=== PATIENT | female | born 1980 | race Caucasian/White ===

== ENCOUNTER → 2017-04-22 | Outpatient (CLI) | payer OTHER ==
[~2017-04-22] MED LIST: DICY10CA12 PO; LEVOIUD; VALA500T60 PO
[2017-04-25 00:33] LABS: CHLAMYDIA TRACH RNA*** NOT DETECTED (NOT DETECTED); GC (NEIS GONORRHOEAE)RNA** NOT DETECTED (NOT DETECTED)
== END | disposition home or self-care (01) ==
LOC: C.LABSPEC 11:23
PROVIDERS: ATTEND Nurse Practitioner Adult Health
DX: N89.8 Other specified noninflammatory disorders of vagina (principal)

== ENCOUNTER → 2017-04-22 | Outpatient (CLI) | payer OTHER | END | disposition home or self-care (01) | LOC: C.PAPS 09:38 | PROVIDERS: ATTEND Nurse Practitioner Adult Health | DX: Z87.410 Personal history of cervical dysplasia (principal); R87.610 Atypical squamous cells of undetermined significance on cytologic smear of cervix (ASC-US) ==

== ENCOUNTER → 2017-04-23 | Outpatient (CLI) | payer OTHER | END | disposition home or self-care (01) | LOC: C.LABBC 08:51 | PROVIDERS: ATTEND Nurse Practitioner Family | DX: Z20.2 Contact with and (suspected) exposure to infections with a predominantly sexual mode of transmission (principal) ==

== ENCOUNTER → 2017-05-18 | Outpatient (CLI) | payer OTHER | END | disposition home or self-care (01) | LOC: C.PATHSPEC 08:08 | PROVIDERS: ATTEND Obstetrics & Gynecology | DX: R87.610 Atypical squamous cells of undetermined significance on cytologic smear of cervix (ASC-US) (principal); R87.810 Cervical high risk human papillomavirus (HPV) DNA test positive; D26.0 Other benign neoplasm of cervix uteri ==

== ENCOUNTER → 2017-05-25 | Outpatient (CLI) | payer OTHER ==
--- NOTE | 2017-05-25 13:39 | DIAGNOSTIC IMAGING REPORT ---
ABDOMEN 2VIEW W/PA CHEST RTN CLINICAL HISTORY: Generalized abdominal pain COMPARISON STUDY: Supine abdomen dated 06/25/2016 FINDINGS: The erect chest reveals no evidence of free air. There is no evidence of focal pulmonary consolidation.] Erect and supine views of the abdomen reveal no abnormally dilated loops of large or small bowel. There are no transition zone to indicate bowel obstruction. There is an indwelling IUD. IMPRESSION: No evidence of bowel obstruction. No evidence of free air. Electronically signed by: Edi Hamilton M.D. 05/25/2017 1:37 PM Dictated Date/Time: 05/25/2017 1:37 PM
== END | disposition home or self-care (01) ==
LOC: C.RADBC 12:33
PROVIDERS: ATTEND Physician Assistant
DX: R10.9 Unspecified abdominal pain (principal)

== ENCOUNTER → 2017-05-26 | Outpatient (CLI) | payer OTHER | END | disposition home or self-care (01) | LOC: C.LABBC 08:51 | PROVIDERS: ATTEND Physician Assistant | DX: R10.9 Unspecified abdominal pain (principal); R19.7 Diarrhea, unspecified ==

== ENCOUNTER → 2017-11-17 | Outpatient (CLI) | payer OTHER ==
[~2017-11-17] MED LIST changes: +LEVO1IUD2; -LEVOIUD
== END | disposition home or self-care (01) ==
LOC: C.PAPS 18:23
PROVIDERS: ATTEND Obstetrics & Gynecology
DX: R87.610 Atypical squamous cells of undetermined significance on cytologic smear of cervix (ASC-US) (principal); R87.612 Low grade squamous intraepithelial lesion on cytologic smear of cervix (LGSIL)

== ENCOUNTER 2017-12-08 08:42 | Emergency (ER) | payer OTHER ==
[~2017-12-08] VITALS: Ht 154.9 cm; Wt 57.8 kg
[2017-12-08 08:45] VITALS: TEMP 36.7; Ht 154.9 cm; Wt 57.8 kg
[2017-12-08] MEDS ORDERED: SODIUM CHLORIDE 0.9% 1000ML 1,000 ML IV STA (09:17)
[2017-12-08] MEDS ORDERED: MoRPHine SULFATE 4 MG/ML 1 ML CARP\\VIAL IV STA (09:17)
[2017-12-08] MEDS ORDERED: ONDANSETRON INJ 2 MG/ML 2 ML VIAL IV STA (09:17)
[2017-12-08] MEDS ORDERED: SODIUM CHLORIDE 0.9% 500ML 500 ML IV STA (09:17)
--- NOTE | 2017-12-08 09:21 | EMERGENCY ROOM VISIT NOTE ---
History Report prepared by Saúl: Osmany Francisco Under the Supervision of: Dr. Sabine Armstrong M.D. First contact with patient: 08:57 Chief Complaint: ABDOMINAL PAIN Stated Complaint: LEFT BELLY PAIN Nursing Triage Summary: pt has hx IBS, started having left lower abd pain yesterday afternoon. states it doesn't feel like a flair. History of Present Illness The patient is a 37 year old female who presents to the Emergency Room with complaints of worsening pain in the left lower quadrant of her abdomen that began yesterday. The patient states that she had some "discomfort" in her abdomen yesterday, which was significantly worsened with a bowel movement. Following her bowel movement yesterday she became diaphoretic and dizzy. The patient does have a history of irritable bowel syndrome, but notes that this pain is different from her common pain. Source of History: patient Onset: yesterday Position: abdomen (LLQ) Timing: worsening Modifying Factors (Worsening): other (bowel movement yesterday) Associated Symptoms: + diaphoresis Note: became dizzy Review of Systems See HPI for pertinent positives & negatives. A total of 10 systems reviewed and were otherwise negative. Past Medical & Surgical Medical Problems: (1) Asthma (2) Calculus Of Ureter (3) Depressive Disorder Nec (4) Tobacco Use Disorder Surgical Problems: (1) History of delivery (2) History of tonsillectomy (3) Status post myringotomy with insertion of tube Family History FH: cancer FH: diabetes mellitus FH: hypertension FH: kidney disease Social History Smoking Status: Current Every Day Smoker Alcohol Use: none Marital Status: single Housing Status: lives with family Occupation Status: employed Current/Historical Medications Scheduled Ciprofloxacin Hcl (Cipro), 500 MG PO BID Scheduled PRN Dicyclomine Hcl (Dicyclomine Hcl), 1 CAP PO TID PRN for Pain Dicyclomine Hcl (Bentyl), 10 MG PO Q6 PRN for spasm Valacyclovir (Valtrex), 500 MG PO DIRECTED PRN for HERPES ON LIPS Miscellaneous Medications Levonorgestrel (Iud) (Mirena) Allergies Coded Allergies: No Known Allergies (Verified , 06/01/17) Physical Exam Vital Signs Date Time Temp Pulse Resp B/P (MAP) Pulse Ox O2 Delivery O2 Flow Rate FiO2 12/08/17 12:05 66 18 106/57 98 12/08/17 10:23 73 12/08/17 10:20 99 18 103/60 99 Room Air 12/08/17 08:45 36.7 85 17 103/57 98 Room Air Physical Exam Vital signs reviewed. General: Well-appearing middle age female, in no significant distress. HEENT: No scleral icterus, PERRLA, neck supple. Atraumatic. Cardiovascular: Regular rate and rhythm, no extra sounds. Pulmonary: Clear to auscultation bilaterally, normal work of breathing. Abdomen: Soft, tender to the left lower quadrant, nondistended, positive bowel sounds. Musculoskeletal: Atraumatic, no peripheral edema. Neurologic: Patient awake alert and oriented x 3 Skin: Warm, dry, no rash Medical Decision & Procedures ER Provider Diagnostic Interpretation: Radiology results as stated below per my review and radiologist interpretation: CT OF THE ABDOMEN AND PELVIS WITH CONTRAST CLINICAL HISTORY: Left lower quadrant abdominal pain. COMPARISON STUDY: CT of the abdomen and pelvis December 24, 2011 and abdominal series May 25, 2017. TECHNIQUE: Following IV administration of 94 mL of Optiray-320, axial images of the abdomen and pelvis were obtained from the lung bases to the proximal femurs. Images were reviewed in the axial, sagittal, and coronal planes. IV contrast was administered without complication. A dose lowering technique was utilized adhering to the principles of ALARA. Oral contrast was administered. CT DOSE: 263.54 mGy.cm FINDINGS: A 4 mm left lower lobe nodule is unchanged and CT of December 24, 2011. This is benign. The liver, spleen, adrenal glands, kidneys and pancreas are normal. There is no hydronephrosis. No biliary or pancreatic ductal dilatation is noted. There is no peripancreatic or pericholecystic infiltration. Appendix is normal. Caliber and wall thickness of small and large bowel are normal. Intrauterine device is appropriately positioned. The ovaries are not enlarged. A small amount of fluid within the pelvis is noted. This is low attenuation. No significant abnormality of the visualized skeletal structures are noted. IMPRESSION: 1. No acute process within the abdomen or pelvis. Normal appendix. No bowel obstruction. 2. Small amount of fluid within the pelvis which is likely physiologic. Electronically signed by: Parth Carpenter M.D. 12/08/2017 11:59 AM Dictated Date/Time: 12/08/2017 11:47 AM Laboratory Results 12/08/17 08:55 Red Blood Count 4.68, Mean Corpuscular Volume 99.1, Mean Corpuscular Hemoglobin 33.5, Mean Corpuscular Hemoglobin Concent 33.8, Mean Platelet Volume 11.5, Neutrophils (%) (Auto) 84.2, Lymphocytes (%) (Auto) 6.9, Monocytes (%) (Auto) 7.9, Eosinophils (%) (Auto) 0.4, Basophils (%) (Auto) 0.3, Neutrophils # (Auto) 6.43, Lymphocytes # (Auto) 0.53, Monocytes # (Auto) 0.60, Eosinophils # (Auto) 0.03, Basophils # (Auto) 0.02 12/08/17 08:55 Test 12/08/17 08:15 12/08/17 08:55 Urine Color ORANGE Urine Appearance TURBID (CLEAR) Urine pH 5.5 (4.5-7.5) Urine Specific [place] 1.034 (1.000-1.030) Urine Protein TRACE (NEG) Urine Glucose (UA) NEG (NEG) Urine Ketones NEG (NEG) Urine Occult Blood NEG (NEG) Urine Nitrite POS (NEG) Urine Bilirubin NEG (NEG) Urine Urobilinogen NEG (NEG) Urine Leukocyte Esterase TRACE (NEG) Urine WBC (Auto) 1-5 /hpf (0-5) Urine RBC (Auto) 0-4 /hpf (0-4) Urine Hyaline Casts (Auto) 5-10 /lpf (0-5) Urine Epithelial Cells (Auto) >30 /lpf (0-5) Urine Bacteria (Auto) NEG (NEG) Urine Renal Epithelial Cells 0-5 /lpf (0-5) Urine Test NEG (NEG) White Blood Count 7.63 K/uL (4.8-10.8) Red Blood Count 4.68 M/uL (4.2-5.4) Hemoglobin 15.7 g/dL (12.0-16.0) Hematocrit 46.4 % (37-47) Mean Corpuscular Volume 99.1 fL (80-100) Mean Corpuscular Hemoglobin 33.5 pg (25-34) Mean Corpuscular Hemoglobin Concent 33.8 g/dl (32-36) Platelet Count 187 K/uL (130-400) Mean Platelet Volume 11.5 fL (7.4-10.4) Neutrophils (%) (Auto) 84.2 % Lymphocytes (%) (Auto) 6.9 % Monocytes (%) (Auto) 7.9 % Eosinophils (%) (Auto) 0.4 % Basophils (%) (Auto) 0.3 % Neutrophils # (Auto) 6.43 K/uL (1.4-6.5) Lymphocytes # (Auto) 0.53 K/uL (1.2-3.4) Monocytes # (Auto) 0.60 K/uL (0.11-0.59) Eosinophils # (Auto) 0.03 K/uL (0-0.5) Basophils # (Auto) 0.02 K/uL (0-0.2) RDW Standard Deviation 48.0 fL (36.4-46.3) RDW Coefficient of Variation 13.4 % (11.5-14.5) Immature Granulocyte % (Auto) 0.3 % Immature Granulocyte # (Auto) 0.02 K/uL (0.00-0.02) Anion Gap 4.0 mmol/L (3-11) Est Creatinine Clear Calc Drug Dose 78.9 ml/min Estimated GFR () 110.1 Estimated GFR (Non- 95.0 BUN/Creatinine Ratio 12.2 (10-20) Calcium Level 8.3 mg/dl (8.5-10.1) Total Bilirubin 1.2 mg/dl (0.2-1) Direct Bilirubin 0.2 mg/dl (0-0.2) Aspartate Amino Transf (AST/SGOT) 13 U/L (15-37) Alanine Aminotransferase (ALT/SGPT) 19 U/L (12-78) Alkaline Phosphatase 58 U/L (45-117) Total Protein 7.0 gm/dl (6.4-8.2) Albumin 3.9 gm/dl (3.4-5.0) Laboratory results per my review. Medications Administered Medications (Trade) Dose Ordered Sig/Jose Route Start Time Stop Time Status Last Admin Dose Admin Sodium Chloride 500 ml @ 999 mls/hr Q31M STAT IV 12/08/17 09:17 12/08/17 09:47 DC 12/08/17 09:37 999 MLS/HR Sodium Chloride 1,000 ml @ 150 mls/hr Q6H40M STAT IV 12/08/17 09:17 12/08/17 12:45 DC 12/08/17 09:37 150 MLS/HR Ondansetron HCl (Zofran Inj) 4 mg NOW STAT IV 12/08/17 09:17 12/08/17 09:23 DC 12/08/17 09:38 4 MG Morphine Sulfate (MoRPHine SULFATE INJ) 4 mg NOW STAT IV 12/08/17 09:17 12/08/17 09:23 DC 12/08/17 09:38 4 MG Ciprofloxacin (Cipro Tab) 500 mg NOW STAT PO 12/08/17 12:03 12/08/17 12:05 DC 12/08/17 12:15 500 MG ED Course 09: Past medical records reviewed. The patient was evaluated in room A11B. A complete history and physical examination was performed. 0917: Ordered Morphine Sulfate 4 mg IV, Zofran 4 mg IV, Sodium Chloride 1000 mL @ 150 mL/hr IV, Sodium Chloride 500 mL @ 999 mL/h Radha. 1203: Ordered Ciprofloxacin 500 mg PO. 1206: Upon reevaluation, the patient appeared to have improvement of her symptoms. I discussed findings with her. She verbalized agreement of the treatment plan. The patient was discharged home. Medical Decision Differential diagnosis: Etiologies such as appendicitis, diverticulitis, PUD, biliary pathology, UTI, pancreatitis, obstruction, mesenteric ischemia, aortic pathology, infections, inflammatory bowel disease, renal colic, as well as others were entertained. This pt was evaluated and appeared to be in no distress. IV access was obtained and lab work was drawn. Pt was given IV morphine and IV zofran. Lab work was fairly unrevealing. CT scan of abd and pelvis was performed and was fairly unrevealing. UA is concerning for infection. A 3 day Rx for cipro 500 mg BID and bentyl 10 mg q6 prn Rx were provided. 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 Medication Reconcilliation Current Medication List: was personally reviewed by me Blood Pressure Screening Patient's blood pressure: Low blood pressure Impression Primary Impression: LLQ abdominal pain Additional Impression: UTI (urinary tract infection) Scribe Attestation The scribe's documentation has been prepared under my direction and personally reviewed by me in its entirety. I confirm that the note above accurately reflects all work, treatment, procedures, and medical decision making performed by me. Departure Information Dispostion Home / Self-Care Prescriptions Ciprofloxacin Hcl (CIPRO) 500 Mg Tab 500 MG PO BID, #6 TAB Prov: Sabine Armstrong M.D. 12/08/17 Dicyclomine Hcl (BENTYL) 10 Mg Cap 10 MG PO Q6 Y for spasm, #20 CAP Prov: Sabine Armstrong M.D. 12/08/17 Referrals Florentin Bettencourt III, CRNP (PCP) Forms Call Back Authorization, HOME CARE DOCUMENTATION FORM, IMPORTANT VISIT INFORMATION Patient Instructions My [facility] Additional Instructions Diagnosis: Left lower quadrant abdominal pain, possible UTI Cipro 500 mg twice daily for 3 days. Please drink plenty of clear fluids. Bentyl 10 mg every 6 hours as needed for spasm. Follow-up with your pai g[employer] dealer for reevaluation this week. Return to the ER for increasing pain, vomiting, high fevers or any medical concerns. Problem Qualifiers
[2017-12-08 09:30] LABS: BASO % 0.3 %; BASO ABS # 0.02 K/uL (0-0.2); EOS % 0.4 %; EOS ABS # 0.03 K/uL (0-0.5); HEMATOCRIT 46.4 % (37-47); HEMOGLOBIN 15.7 g/dL (12.0-16.0); IG# 0.02 K/uL (0.00-0.02); LYMPH % 6.9 %; LYMPH ABS # 0.53 K/uL (1.2-3.4); MEAN CELL VOLUME 99.1 fL (80-100); MEAN CORPUSCULAR HEMOGLOBIN 33.5 pg (25-34); MEAN CORPUSCULAR HGB CONC 33.8 g/dl (32-36); MEAN PLATELET VOLUME 11.5 fL (7.4-10.4); MONO % 7.9 %; NEUT % 84.2 %; NEUT ABS # 6.43 K/uL (1.4-6.5); PLATELET COUNT 187 K/uL (130-400); RED CELL DISTRIBUTION WIDTH CV 13.4 % (11.5-14.5); WHITE BLOOD COUNT 7.63 K/uL (4.8-10.8)
[2017-12-08] MEDS ORDERED: OPTIRAY 320 IV PRN (09:30)
[2017-12-08 09:39] LABS: ALBUMIN 3.9 gm/dl (3.4-5.0); CALCIUM 8.3 mg/dl (8.5-10.1); CREATININE 0.79 mg/dl (0.60-1.20); POTASSIUM 3.5 mmol/L (3.5-5.1)
--- NOTE | 2017-12-08 12:00 | DIAGNOSTIC IMAGING REPORT ---
CT OF THE ABDOMEN AND PELVIS WITH CONTRAST CLINICAL HISTORY: Left lower quadrant abdominal pain. COMPARISON STUDY: CT of the abdomen and pelvis December 24, 2011 and abdominal series May 25, 2017. TECHNIQUE: Following IV administration of 94 mL of Optiray-320, axial images of the abdomen and pelvis were obtained from the lung bases to the proximal femurs. Images were reviewed in the axial, sagittal, and coronal planes. IV contrast was administered without complication. A dose lowering technique was utilized adhering to the principles of ALARA. Oral contrast was administered. CT DOSE: 263.54 mGy.cm FINDINGS: A 4 mm left lower lobe nodule is unchanged and CT of December 24, 2011. This is benign. The liver, spleen, adrenal glands, kidneys and pancreas are normal. There is no hydronephrosis. No biliary or pancreatic ductal dilatation is noted. There is no peripancreatic or pericholecystic infiltration. Appendix is normal. Caliber and wall thickness of small and large bowel are normal. Intrauterine device is appropriately positioned. The ovaries are not enlarged. A small amount of fluid within the pelvis is noted. This is low attenuation. No significant abnormality of the visualized skeletal structures are noted. IMPRESSION: 1. No acute process within the abdomen or pelvis. Normal appendix. No bowel obstruction. 2. Small amount of fluid within the pelvis which is likely physiologic. Electronically signed by: Parth Carpenter M.D. 12/08/2017 11:59 AM Dictated Date/Time: 12/08/2017 11:47 AM
[2017-12-08] MEDS ORDERED: CIPROFLOXACIN 500 MG TAB PO STA (12:03)
[2017-12-08 12:05] VITALS: BP 106/57; PULSE 66; O2SAT 98
[2017-12-08] MEDS ORDERED: DICY10CA55 PO (12:13)
[2017-12-08] MEDS ORDERED: CIPR-255 PO (12:14)
== END 2017-12-08 12:38 | disposition home or self-care (01) ==
LOC: C.EDB 08:44 → C.EDA 12:38
DX: R10.32 Left lower quadrant pain (principal); N39.0 Urinary tract infection, site not specified; K58.9 Irritable bowel syndrome, unspecified; J45.909 Unspecified asthma, uncomplicated; F17.200 Nicotine dependence, unspecified, uncomplicated; Z84.1 Family history of disorders of kidney and ureter

== ENCOUNTER 2019-10-31 01:32 | Inpatient (IN) ==
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
[2019-10-31] MEDS ORDERED: OXYTOCIN 30 UNITS/500 ML BAG IV PRN ×2 (03:39→09:29)
[2019-10-31] MEDS ORDERED: LACTATED RINGER'S 1,000 ML IV PRN (03:39)
[2019-10-31 04:21] LABS: Hematocrit (blood only) 41.3 % (37-47); Hemoglobin 14.3 g/dL (12.0-16.0); Mean Corpuscular Hemoglobin 34.3 pg (25-34); Mean Corpuscular Hgb Conc 34.6 g/dL (32-36); Platelet Count 109 K/uL (130-400); RDW Coefficient of Variation 13.2 % (11.5-14.5); RDW Standard Deviation 47.4 fL (36.4-46.3); Red Blood Count 4.17 M/uL (4.2-5.4); White Blood Count 10.46 K/uL (4.8-10.8)
[2019-10-31 04:22] LABS: Platelet Estimate Decreased (Normal)
[2019-10-31] MEDS ORDERED: CEFAZOLIN 2000MG 2,000 MG/15 ML SYR IV ONE (06:13)
[2019-10-31] MEDS ORDERED: fentaNYL citrate 100 MCG/2 ML VIAL ONE ×2 (06:23→06:42)
[2019-10-31] MEDS ORDERED: SUCCINYLCHOLINE 100MG/5ML SYR ONE (06:27)
[2019-10-31] MEDS ORDERED: PROPOFOL IV EMULSION 10 MG/ML 20 ML VIAL IV ONE (06:27)
[2019-10-31] MEDS ORDERED: DEXAMETHASONE SOD INJ 4 MG/ML VIAL ONE (06:27)
[2019-10-31] MEDS ORDERED: CEFAZOLIN 250 MG/ML 1 GM VIAL ONE (06:28)
[2019-10-31] MEDS ORDERED: ONDANSETRON INJ 2 MG/ML 2 ML VIAL ONE (06:28)
[2019-10-31] MEDS ORDERED: PHENYLEPHRINE 100MCG/ML 5ML SYR ONE (06:34)
[2019-10-31] MEDS ORDERED: KETOROLAC 30 MG/ML VIAL IV PRN (06:45)
[2019-10-31] MEDS ORDERED: PHENYLEPHRINE 100MCG/ML 5ML SYR IV PRN (06:45)
[2019-10-31] MEDS ORDERED: HYDROmorphone INJ 1 MG/ML SYRINGE IV PRN (06:45)
[2019-10-31] MEDS ORDERED: ATROPINE SULFATE 0.1 MG/ML 10ML SYR IV PRN (06:45)
[2019-10-31] MEDS ORDERED: ONDANSETRON INJ 2 MG/ML 2 ML VIAL IV PRN ×2 (06:45→07:52)
[2019-10-31] MEDS ORDERED: fentaNYL citrate 100 MCG/2 ML VIAL IV PRN (06:45)
[2019-10-31] MEDS ORDERED: ePHEDrine sulfate 50 MG/ML AMP IV PRN (06:45)
[2019-10-31] MEDS ORDERED: LABETALOL HCL IV 5 MG/ML 20ML IV PRN (06:45)
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
[2019-10-31 06:50] LABS: Base Excess Cord Arterial Bld -9.7 mEq/L (-9-1.8); CO2 Cord Arterial Blood 109 mmHg (39.1-73.5); HCO3 Cord Arterial Blood 25 mmol/L (19.7-28.5); PO2 Cord Arterial Blood 10 mmHg (4.1-31.7); pH Cord Arterial Blood 6.98 (7.1-7.38)
[2019-10-31 06:56] LABS: Oxygen Sat Cord Arterial Blood < 60.0 % (<60)
--- NOTE | 2019-10-31 07:28 | XRay Report ---
XR KUB/Abdomen 1 view CLINICAL HISTORY: stat c/section under general. no instrument or COMPARISON STUDY: 05/25/2017 FINDINGS: Prominent soft tissue density over the right central abdomen. This potentially relates to t he enlarged postgravid uterus. Bowel pattern is considered nonobstructive. No evidence for radiopaque foreign body IMPRESSION: 1. No evidence for radiopaque foreign body. 2. Soft tissue prominence within the superior soft tissue pelvic and lower abdominal region which pot entially indicates an enlarged postgravid uterus. ACT 112: Negative or not required by law. The above report was generated using voice recognition software. It may contain grammatical, syntax or spelling errors. Electronically signed by: Hugo Campo M.D. 10/31/2019 7:27 AM
[2019-10-31] MEDS ORDERED: SENNA 8.6 MG TAB PO PRN (07:52)
[2019-10-31] MEDS ORDERED: DiphenhydrAMINE HCL 50 MG/ML VIAL IV PRN (07:52)
[2019-10-31] MEDS ORDERED: HYDROCORTISONE ACETATE 25 MG SUPP PR PRN (07:52)
[2019-10-31] MEDS ORDERED: SUPERCREAM 0.870% 15 GM JAR EXT PRN (07:52)
[2019-10-31] MEDS ORDERED: LACTATED RINGER'S 1,000 ML IV SCH (07:52)
[2019-10-31] MEDS ORDERED: PROMETHAZINE HCL 25 MG in SODIUM CHLORIDE 0.9% 50 ML IV PRN (07:52)
[2019-10-31] MEDS ORDERED: DIPHTHERIA/TETANUS/PERTUSSIS 0.5 ML SYR/VIAL IM ONE (07:52)
[2019-10-31] MEDS ORDERED: MAGNESIUM HYDROXIDE SUSP 30 ML UDC PO PRN (07:52)
[2019-10-31] MEDS ORDERED: BENZOCAINE 20% AER SPR 82.5 GM CAN EXT PRN (07:52)
--- NOTE | 2019-10-31 07:58 | Anesthesiology Progress Note ---
Date of Service October 31, 2019 Anesthesia Post Procedure Vital Signs Vital Signs: Temp Pulse Resp BP Pulse Ox 10/31/19 07:52 62 100 10/31/19 07:49 74 140/79 10/31/19 07:48 69 93 10/31/19 07:47 73 100 10/31/19 07:42 79 99 10/31/19 07:38 81 165/73 H 10/31/19 07:37 76 99 10/31/19 07:34 81 150/67 H 10/31/19 07:33 91 H 90 10/31/19 07:32 82 99 10/31/19 07:27 79 92 10/31/19 05:56 58 L 100 10/31/19 05:52 62 134/73 10/31/19 05:51 61 100 10/31/19 03:31 67 119/76 10/31/19 01:56 36.5 C 18 10/31/19 01:47 36.5 C 68 18 132/75 Transfer of Care Handoff Completed per policy Notes Mental Status: alert / awake / arousable and participated in evaluation Patient Amnestic to Procedure: Yes Nausea / Vomiting: adequately controlled Pain: adequately controlled Airway Patency, RR, SpO2: stable & adequate BP & HR: stable & adequate Hydration State: stable & adequate Anesthetic Complications: no major complications apparent and Pt Satisfied with anesthetic care
[2019-10-31] MEDS: MEPERIDINE HCL 25 MG/ML CARP/VIAL IV PRN ×4 (08:02→08:41)
[2019-10-31] MEDS ORDERED: MoRPHine Bolus from PCA IV STA (08:06)
[2019-10-31] MEDS ORDERED: MORPHINE SULFATE PCA 30 MG/30 ML IV PRN (08:06)
[2019-10-31] MEDS ORDERED: NALOXONE HCL 0.4 MG/1 ML VIAL/CARP IV PRN (08:06)
[2019-10-31] MEDS ORDERED: SODIUM CHLORIDE 0.9% 1000ML 1,000 ML IV SCH (08:15)
--- NOTE | 2019-10-31 08:19 | Operative Report ---
PG Post Operative Report Pre & Post Diagnosis Operation Date: 10/31/19 06:30 Preop: h/o section, nonreassuring heart tracing with prolonged deceleration with concern for uterine rupture Postop: h/o section, nonreassuring heart tracing with prolonged deceleration, no uterine rupture upon surgical exploration I identified the patient and participated in the time-out.: Yes Procedure Operation Date: 10/31/19 06:30 Repeat low transverse section Surgeon Florinda Yang DO Director Of Property Management Bety Caruso MD, Amarilis Wood RN Estimated Blood Loss 1,000 Findings See Below Viable male , Apgars 5/9. Weight pending, please see nursery records. Normal appearing tubes, ovaries, uterus. Specimens Placenta, cord blood, cord blood gas Drains cerna clear yellow Anesthesia Type General Complications none Disposition Accompanied Patient To Recovery: Yes Disposition: L&D Indications 38yo @ 37 4/7 presented to L&D unannounced with contractions every few minutes. No leaking of fluid, no vaginal bleeding. + movement. History of section with desire for . She then developed a prolonged deceleration that was Unresponsive to resuscitative measures of oxygen, position changes, fluid bolus. heart tones were in the 60s. Because of her history of section and contractions every 2 minutes, the initial working diagnosis was possible uterine rupture. The patient had already been consented for emergency section upon arrival to labor and delivery as she was planning to . She was verbally agreeable to proceed with section. Description of Procedure The patient was taken to the operating room for a stat section. She was prepared and draped in the supine position. Betadine splash was used. Anesthesia placed patient under general anesthesia, and at that time the skin incision was made. Using a scalpel, the skin incision was made in a Pfannenstiel position, and carried through to the underlying layer of fascia. The fascia was nicked at midline, and this incision was extended bilaterally. The rectus abdominis muscles were at midline, and the peritoneum was entered bluntly digitally. The bladder blade was placed, and a new scalpel was used to create a low transverse uterine incision. The infant was delivered from a cephalic presentation, the head was not applied in the pelvis. No nuchal cord noted. The head was delivered, foam followed by anterior and posterior shoulders, followed by body. The cord was immediately doubly clamped and cut, and the infant was handed off to the waiting pediatrics team. A segment of cord was retained for cord gases. Cord blood was obtained. The placenta was removed manually. It was intact. The uterus was exteriorized from the abdomen, and it was cleared of all clots and debris. A left uterine extension into the left uterine vessels was discovered. This was grasped with Allis clamps to obtain hemostasis. The uterine incision was reapproximated using 0 Vicryl in a running locked stitch. 2 [place] stitches were used in the left uterine vessels to obtain hemostasis. These were successful. A second layer of the same suture was used to imbricate the incision. The posterior uterus was evaluated, found to be intact. The uterus was then returned to the abdomen. Bilateral gutters were cleared of clots and debris. Excellent hemostasis was observed. The fascial incision was reapproximated using 0 Vicryl in a running stitch. The subcutaneous tissue was irrigated and reapproximated using 2-0 plain gut in a running stitch. The skin incision was reapproximated using 4-0 Vicryl in a running subcuticular stitch. Steri-Strips and a bandage were applied. Since the section was performed under stat conditions, no initial instrument count was performed. Radiology was called to perform an x-ray to ensure proper instrument and sponge counts. The patient was then taken to recovery area in stable and good condition. She tolerated the procedure well. I attest to the content of the Intraoperative Record and any orders documented therein. Any exceptions are noted below.
[2019-10-31] MEDS: SIMETHICONE 80 MG CHEW PO SCH ×3 (08:44→21:55)
[2019-10-31] MEDS: PRENATAL VITAMIN 1 TAB PO SCH (08:47)
[2019-10-31] MEDS: FERROUS SULFATE 325 MG TAB PO SCH (08:47)
[2019-10-31] MEDS: DOCUSATE SODIUM 100 MG CAP PO SCH ×2 (08:47→21:55)
[2019-10-31] MEDS ORDERED: OXYTOCIN 20 UNITS in LACTATED RINGER'S 1,000 ML IV SCH (11:15)
[2019-10-31] MEDS: CEFAZOLIN 1000MG 1,000 MG/7.5 ML SYR IV SCH ×2 (14:24→21:55)
[2019-11-01] MEDS: CEFAZOLIN 1000MG 1,000 MG/7.5 ML SYR IV SCH (05:38)
--- NOTE | 2019-11-01 06:06 | Obstetrical Progress Note ---
Date of Service <Quin Mckee DO - Last Filed: 11/01/19 06:34> November 01, 2019 Assessment & Plan <Quin Mckee DO - Last Filed: 11/01/19 06:34> (1) Encounter for care and examination after delivery: 38 yo POD #1 from emergency C section for concern for uterine rupture. No rupture found during surgery. Pt doing well and without complaints. - will continue routine care. - encouraged ambulation today and SCDs when in bed. - following d/c will have follow up with Dr. Yang. Subjective <Quin Mckee DO - Last Filed: 11/01/19 06:34> 38 yo female ; POD # 1 following section delivery at 37.4weeks; doing well this AM; minimal abdominal cramping/pain with coughing; just had cerna taken out, no passing gas or BM; tolerating snacks overnight. Some "wet cough" that she reports she has started to have since waking up from surgery, but no fevers, chills, shortness of breath, chest pain. 24 Hour I/Os: Intake: 1848 Output: 3800 Review of Systems Constitutional: denies fever, chills, sweats, headache Respiratory: denies SOB, difficulty breathing Cardiac: denies CP, chest palpitations, chest pressure Breast: denies breast pain : denies dysuria Physical Exam <Quin Mckee DO - Last Filed: 11/01/19 06:34> General: patient is alert and oriented, in NAD Cardiac: +S1/S2, no murmurs rubs or gallops Respiratory: lungs with no wheezes, some upper airway sounds, visualized patient struggle to cough due to abdominal pain in room, no increased work of breathing, symmetric chest rise, no respiratory distress Abdomen: soft, NT, +bowel sounds Uterus: uterine fundus firm, palpable below the level of the umbilicus. Incision intact, non-tender, non-erythematous, no weeping from incision site, steri strips in place Lower Extremities: no LE edema or swelling, no deep calf pain, Pancho's sign negative b/l Results & Data <Quin Mckee - Last Filed: 11/01/19 06:34> Vital Signs (Past 12 Hours) Vital Signs Temp Pulse Resp BP Pulse Ox 11/01/19 02:45 36.8 C 65 16 144/74 H 93 10/31/19 23:15 37.0 C 66 16 120/73 93 10/31/19 20:30 37.1 C 58 L 16 125/71 96 10/31/19 18:16 18 98 Laboratory Results Laboratory Results - last 24 hr 10/31/19 10/31/19 10/31/19 05:44 06:13 06:13 Cord ABG pH 6.98 L Cord ABG pCO2 109 H Cord ABG pO2 10 Cord ABG HCO3 25 Cord ABG Base Excess -9.7 L Cord ABG O2 Sat < 60.0 Cord VBG pH TNP Cord VBG pCO2 TNP Cord VBG pO2 TNP Cord VBG HCO3 TNP Cord VBG Base Excess TNP Cord VBG O2 Sat TNP Barometric Pressure 741.8 Blood Gas Comments WANG TNP POC Glucose 67 L* Medications Administered Current Medications Benzocaine (Dermoplast Pain Relieving [place]) 1 appln EXT UD PRN PRN Reason: use on skin as needed Stop: 11/30/19 07:51 Bisacodyl (Dulcolax) 5 mg PO 1999 [facility] Stop: 11/01/19 20:01 Bisacodyl (Dulcolax) 10 mg NE PRN PRN PRN Reason: Constipation Stop: 12/02/19 07:08 Cocaine HCl (Supercream 0.870%) 1 gm EXT UD PRN PRN Reason: hemmorrhoidal inflammation Stop: 11/14/19 07:51 Diphenhydramine HCl (Benadryl) 25 mg IV QID PRN PRN Reason: Itching Stop: 11/30/19 07:51 Diphenhydramine HCl (Benadryl Capsule) 25 mg PO QID PRN PRN Reason: Itching Stop: 11/30/19 07:51 Docusate Sodium (Colace) 100 mg PO DAILY@, [facility] Stop: 11/30/19 07:59 Last Admin: 10/31/19 21:55 Dose: 100 mg Documented by: Ferrous Sulfate (Feosol) 325 mg PO DAILY@08 [facility] Stop: 11/30/19 07:59 Last Admin: 10/31/19 08:47 Dose: Not Given Documented by: Hydrocortisone (Anusol Hc) 25 mg NE BID PRN PRN Reason: Hemorrhoids Stop: 11/30/19 07:51 Lactated Ringer's (Lr) 1,000 mls @ 125 mls/hr IV .Q8H PRN; Protocol PRN Reason: L&D Protocol Stop: 11/02/19 03:38 Last Infusion: 10/31/19 05:48 Dose: 999 mls/hr Documented by: Oxytocin (Pitocin) 30 units in 500 mls @ 333.333 mls/hr IV .Q1H30M PRN; Protocol PRN Reason: Bleeding Control Stop: 11/30/19 03:38 Lactated Ringer's (Lr) 1,000 mls @ 125 mls/hr IV .Q8H [facility] Stop: 11/30/19 07:51 Promethazine HCl 25 mg/ Sodium (Chloride) 51 mls @ 204 mls/hr IV Q4H PRN PRN Reason: Nausea And Vomiting Stop: 11/30/19 07:51 Sodium Chloride (Nss 1000ml) 1,000 mls @ 15 mls/hr IV .Q24H [facility] Stop: 11/14/19 08:06 Last Infusion: 11/01/19 06:05 Dose: 0 mls/hr Documented by: Ibuprofen (Motrin) 600 mg PO Q4H PRN PRN Reason: Pain Stop: 11/30/19 07:51 Magnesium Hydroxide (Milk Of Magnesia) 30 ml PO HS PRN PRN Reason: Constipation Stop: 11/30/19 07:51 Morphine Sulfate () 30 mg IV PRN PRN; Protocol 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 Stop: 11/14/19 08:05 Last Admin: 10/31/19 10:36 Dose: 30 mg Documented by: Naloxone HCl (Narcan) 0.1 mg IV Q5M PRN; Protocol PRN Reason: Oversedation/Resp Depression Stop: 11/14/19 08:05 Ondansetron HCl (Zofran) 4 mg IV Q4H PRN PRN Reason: Nausea And Vomiting Stop: 11/30/19 07:51 Oxycodone/Acetaminophen (Percocet 5mg/325mg) 1 - 2 tab PO Q4H PRN PRN Reason: Pain Stop: 11/14/19 07:51 Prenat Multivit/Product Manager Medical Device/Iron/Folic Ac ( Vitamin) 1 tab PO DAILY@08 [facility] Stop: 11/30/19 07:59 Last Admin: 10/31/19 08:47 Dose: Not Given Documented by: Sennosides (Senokot) 17.2 mg PO HS PRN PRN Reason: Constipation Stop: 11/30/19 07:51 Simethicone (Mylicon) 80 mg PO DAILY@08,13,17,21 [facility] Stop: 11/30/19 07:59 Last Admin: 10/31/19 21:55 Dose: 80 mg Documented by: <Gabriela Caruso MD - Last Filed: 11/01/19 07:33> Co-Signing Physician Notes I have reviewed the resident's note and examined the patient myself, and agree with the note above. Resident Activity Tracking <Quin Mckee DO - Last Filed: 11/01/19 06:34> Resident Involvement: Resident Care Provided Care Provided: OB Delivery
[2019-11-01] MEDS: IBUPROFEN 600 MG TAB PO PRN ×4 (07:34→20:30)
[2019-11-01] MEDS: OXYCODONE/ACETAMINOPHEN 5mg/325mg TAB PO PRN ×4 (07:34→20:30)
[2019-11-01 08:08] LABS: Hemoglobin 14.1 g/dL (12.0-16.0); Mean Corpuscular Hemoglobin 33.6 pg (25-34); Mean Corpuscular Hgb Conc 33.6 g/dL (32-36); Mean Platelet Volume 12.9 fL (7.4-10.4); Platelet Count 124 K/uL (130-400); RDW Coefficient of Variation 13.6 % (11.5-14.5); RDW Standard Deviation 49.2 fL (36.4-46.3); White Blood Count 14.58 K/uL (4.8-10.8)
[2019-11-01 08:13] LABS: Basophils # (auto) 0.02 K/uL (0-0.2); Basophils % (auto) 0.1 %; Eosinophils # (auto) 0.02 K/uL (0-0.5); Eosinophils % (auto) 0.1 %; Immature Granulocytes # (auto) 0.05 K/uL (0.00-0.02); Immature Granulocytes % (auto) 0.3 %; Lymphocytes # (auto) 1.92 K/uL (1.2-3.4); Lymphocytes % (auto) 13.2 %; Monocytes # (auto) 0.77 K/uL (0.11-0.59); Monocytes % (auto) 5.3 %; Platelet Estimate Decreased (Normal)
--- NOTE | 2019-11-01 09:30 | Anesthesiology Progress Note ---
Date of Service November 01, 2019 Anesthesia Post Procedure Vital Signs Vital Signs: Temp Pulse Pulse Resp BP BP Pulse Ox 11/01/19 02:45 98.2 F 65 16 144/74 H 93 10/31/19 23:15 98.6 F 66 16 120/73 93 10/31/19 20:30 98.8 F 58 L 16 125/71 96 10/31/19 18:16 18 98 10/31/19 17:12 18 96 10/31/19 16:09 20 99 10/31/19 15:15 97.7 F 50 L 20 132/76 99 10/31/19 14:30 20 98 10/31/19 13:25 19 98 10/31/19 12:35 97.9 F 51 L 18 143/67 H 98 10/31/19 11:40 97.5 F L 51 L 16 124/70 97 10/31/19 11:28 62 125/69 10/31/19 11:25 97.5 F L 20 10/31/19 11:24 56 L 96 10/31/19 11:19 58 L 97 10/31/19 11:18 66 114/71 10/31/19 11:14 67 95 10/31/19 11:09 56 L 123/64 96 10/31/19 11:04 64 96 10/31/19 10:59 61 95 10/31/19 10:58 67 122/63 10/31/19 10:55 98.1 F 20 10/31/19 10:54 70 97 10/31/19 10:51 71 93 10/31/19 10:49 64 95 10/31/19 10:48 66 117/77 10/31/19 10:45 21 10/31/19 10:44 60 95 10/31/19 10:39 54 L 95 10/31/19 10:38 68 121/71 10/31/19 10:34 60 97 10/31/19 10:29 55 L 97 10/31/19 10:28 52 L 118/63 10/31/19 10:25 20 10/31/19 10:24 57 L 96 10/31/19 10:19 52 L 109/55 L 96 10/31/19 10:14 54 L 97 10/31/19 10:09 62 97 10/31/19 10:08 51 L 125/61 10/31/19 10:04 53 L 96 10/31/19 09:59 64 123/70 98 10/31/19 09:55 20 10/31/19 09:54 60 96 10/31/19 09:49 61 135/79 96 10/31/19 09:44 64 93 10/31/19 09:43 57 L 94 10/31/19 09:38 60 130/66 96 10/31/19 09:33 58 L 95 Pain Intensity Lower Abdomen: Pain Intensity: 2 Transfer of Care Handoff Completed per policy Notes Mental Status: alert / awake / arousable and participated in evaluation Patient Amnestic to Procedure: Yes Nausea / Vomiting: adequately controlled Pain: adequately controlled Airway Patency, RR, SpO2: stable & adequate BP & HR: stable & adequate Hydration State: stable & adequate Anesthetic Complications: no major complications apparent and Pt Satisfied with anesthetic care
[2019-11-01] MEDS: FERROUS SULFATE 325 MG TAB PO SCH (11:10)
[2019-11-01] MEDS: SIMETHICONE 80 MG CHEW PO SCH ×3 (11:10→20:29)
[2019-11-01] MEDS: PRENATAL VITAMIN 1 TAB PO SCH (11:10)
[2019-11-01] MEDS: DOCUSATE SODIUM 100 MG CAP PO SCH ×2 (11:10→20:29)
[2019-11-01] MEDS ORDERED: bisacodyL 5 MG TABEC PO SCH (20:00)
[2019-11-02] MEDS: IBUPROFEN 600 MG TAB PO PRN ×4 (00:21→16:23)
[2019-11-02] MEDS: OXYCODONE/ACETAMINOPHEN 5mg/325mg TAB PO PRN ×4 (00:21→16:23)
--- NOTE | 2019-11-02 06:14 | Obstetrical Progress Note ---
Date of Service <Quin Marshallnicole - Last Filed: 11/02/19 06:55> November 02, 2019 Assessment & Plan <Quin Mckee - Last Filed: 11/02/19 06:55> (1) Encounter for care and examination after delivery: 38 yo POD #2 from emergency C section for concern for uterine rupture. No rupture found during surgery. Pt doing well and without complaints. - Yesterday was held overnight due to low platelets in 120s, though improving si nce admission (~100 at that time). 142 this AM and without clinical signs or symptoms of thrombocytopenia. - for d/c this AM. - following d/c will have follow up with Dr. Yang. - Went over discharge instructions and answered all patient questions. Subjective <Quin Rafi, DO - Last Filed: 11/02/19 06:55> 38 yo female ; POD # 2 following section delivery at 37.4weeks; doing well this AM; abdominal cramping/pain she was experiencing yesterday with coughing is significantly improved; voiding well, passing gas but no BM; tolerating food without nausea or vomiting. The cough she had yesterday that she attributed to being intubated has cleared up and she feels less "junky in her throat". Review of Systems Constitutional: denies fever, chills, sweats, headache Respiratory: denies SOB, difficulty breathing Cardiac: denies CP, chest palpitations, chest pressure Breast: denies breast pain : denies dysuria Physical Exam <Quin Mckee DO - Last Filed: 11/02/19 06:55> General: patient is alert and oriented, in NAD Cardiac: +S1/S2, no murmurs rubs or gallops Respiratory: lungs CTA b/l, anteriorly and posteriorly, no wheezes rales or rhonchi, no increased work of breathing, symmetric chest rise, no respiratory distress Abdomen: soft, NT, +bowel sounds Uterus: uterine fundus firm, palpable below the level of the umbilicus. Incision intact, non-tender, non-erythematous, no weeping from incision site Lower Extremities: no LE edema or swelling, no deep calf pain, Pancho's sign negative b/l Results & Data <Quin Mckee DO - Last Filed: 11/02/19 06:55> Vital Signs (Past 12 Hours) Vital Signs Temp Pulse Resp BP Pulse Ox 11/01/19 23:25 37.1 C 63 18 137/74 94 11/01/19 20:25 37 C 62 18 136/75 94 Laboratory Results Laboratory Results - last 24 hr 11/01/19 11/02/19 06:56 06:09 WBC 14.58 H 11.10 H RBC 4.20 4.03 L Hgb 14.1 13.6 Hct 42.0 40.5 MCV 100.0 100.5 H MCH 33.6 33.7 MCHC 33.6 33.6 RDW Std Deviation 49.2 H 49.5 H RDW Coeff of [place] 13.6 13.4 Plt Count 124 L 142 MPV 12.9 H 12.7 H Immature Gran % (Auto) 0.3 Neut % (Auto) 81.0 Lymph % (Auto) 13.2 [place] % (Auto) 5.3 Eos % (Auto) 0.1 Baso % (Auto) 0.1 Immature Gran # (Auto) 0.05 H Neut # (Auto) 11.80 H Lymph # (Auto) 1.92 [place] # (Auto) 0.77 H Eos # (Auto) 0.02 Baso # (Auto) 0.02 Platelet Estimate Decreased L Medications Administered Current Medications Benzocaine (Dermoplast Pain Relieving [place]) 1 appln EXT UD PRN PRN Reason: use on skin as needed Stop: 11/30/19 07:51 Bisacodyl (Dulcolax) 10 mg ME PRN PRN PRN Reason: Constipation Stop: 12/02/19 07:08 Cocaine HCl (Supercream 0.870%) 1 gm EXT UD PRN PRN Reason: hemmorrhoidal inflammation Stop: 11/14/19 07:51 Diphenhydramine HCl (Benadryl) 25 mg IV QID PRN PRN Reason: Itching Stop: 11/30/19 07:51 Diphenhydramine HCl (Benadryl Capsule) 25 mg PO QID PRN PRN Reason: Itching Stop: 11/30/19 07:51 Docusate Sodium (Colace) 100 mg PO DAILY@08,21 [facility] Stop: 11/30/19 07:59 Last Admin: 11/01/19 20:29 Dose: 100 mg Documented by: Ferrous Sulfate (Feosol) 325 mg PO DAILY@08 [facility] Stop: 11/30/19 07:59 Last Admin: 11/01/19 11:10 Dose: 325 mg Documented by: Hydrocortisone (Anusol Hc) 25 mg [place] BID PRN PRN Reason: Hemorrhoids Stop: 11/30/19 07:51 Oxytocin (Pitocin) 30 units in 500 mls @ 333.333 mls/hr IV .Q1H30M PRN; Protocol PRN Reason: Bleeding Control Stop: 11/30/19 03:38 Lactated Ringer's (Lr) 1,000 mls @ 125 mls/hr IV .Q8H [facility] Stop: 11/30/19 07:51 Promethazine HCl 25 mg/ Sodium (Chloride) 51 mls @ 204 mls/hr IV Q4H PRN PRN Reason: Nausea And Vomiting Stop: 11/30/19 07:51 Sodium Chloride (Nss 1000ml) 1,000 mls @ 15 mls/hr IV .Q24H [facility]EN Stop: 11/14/19 08:06 Last Infusion: 11/01/19 06:05 Dose: 0 mls/hr Documented by: Ibuprofen (Motrin) 600 mg PO Q4H PRN PRN Reason: Pain Stop: 11/30/19 07:51 Last Admin: 11/02/19 05:54 Dose: 600 mg Documented by: Magnesium Hydroxide (Milk Of Magnesia) 30 ml PO HS PRN PRN Reason: Constipation Stop: 11/30/19 07:51 Morphine Sulfate () 30 mg IV PRN PRN; Protocol 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 Stop: 11/14/19 08:05 Last Admin: 10/31/19 10:36 Dose: 30 mg Documented by: Naloxone HCl (Narcan) 0.1 mg IV Q5M PRN; Protocol PRN Reason: Oversedation/Resp Depression Stop: 11/14/19 08:05 Ondansetron HCl (Zofran) 4 mg IV Q4H PRN PRN Reason: Nausea And Vomiting Stop: 11/30/19 07:51 Oxycodone/Acetaminophen (Percocet 5mg/325mg) 1 - 2 tab PO Q4H PRN PRN Reason: Pain Stop: 11/14/19 07:51 Last Admin: 11/02/19 05:54 Dose: 1 tab Documented by: Prenat Multivit/[place]/Iron/Folic Ac ( Vitamin) 1 tab PO DAILY@08 [facility] Stop: 11/30/19 07:59 Last Admin: 11/01/19 11:10 Dose: 1 tab Documented by: Sennosides (Senokot) 17.2 mg PO HS PRN PRN Reason: Constipation Stop: 11/30/19 07:51 Simethicone (Mylicon) 80 mg PO DAILY@08,13,17,21 [facility] Stop: 11/30/19 07:59 Last Admin: 11/01/19 20:29 Dose: 80 mg Documented by: <Rolan Saleem Jr, MD, FACOG - Last Filed: 11/02/19 06:59> Co-Signing Physician Notes Resident Physician Supervision Note: I was present with Dr. Crawford during the history and exam. I discussed the case with the resident and agree with the findings and plan as documented in the note. Any exceptions or clarifications are listed here: Desires d/c, plts stable, instructions/Rx given, f/u in 6 weeks Documented By: Rolan Saleem Jr, MD, FACOG Resident Activity Tracking <Quin Mckee DO - Last Filed: 11/02/19 06:55> Resident Involvement: Resident Care Provided Care Provided: OB Delivery
[2019-11-02 06:44] LABS: Hematocrit (blood only) 40.5 % (37-47); Hemoglobin 13.6 g/dL (12.0-16.0); Mean Corpuscular Hemoglobin 33.7 pg (25-34); Mean Corpuscular Hgb Conc 33.6 g/dL (32-36); Mean Corpuscular Volume 100.5 fL (80-100); Mean Platelet Volume 12.7 fL (7.4-10.4); Platelet Count 142 K/uL (130-400); RDW Coefficient of Variation 13.4 % (11.5-14.5); RDW Standard Deviation 49.5 fL (36.4-46.3); Red Blood Count 4.03 M/uL (4.2-5.4)
[2019-11-02] MEDS ORDERED: bisacodyL 10 MG SUPP PR PRN (07:09)
[2019-11-02] MEDS: SIMETHICONE 80 MG CHEW PO SCH ×2 (08:34→16:23)
[2019-11-02] MEDS: FERROUS SULFATE 325 MG TAB PO SCH (08:34)
[2019-11-02] MEDS: PRENATAL VITAMIN 1 TAB PO SCH (08:34)
[2019-11-02] MEDS: DOCUSATE SODIUM 100 MG CAP PO SCH (08:34)
--- NOTE | 2019-11-03 23:18 | Discharge Summary ---
Date of Service November 03, 2019 Admission HPI Per Admitting Provider 38yo @ 37 11/21 presented to L&D unannounced with contractions every few minutes. No leaking of fluid, no vaginal bleeding. + movement. is complicated by: History of section: first delivery was vaginal, then second child was primary low transverse section (op report available in [employer] - 2010). Desires , reviewed informed consent including risk of uterine rupture, /maternal , need for blood/products, need for emergent or possible emergent -hysterectomy. Advanced maternal age. History of genital herpes - has been taking valtrex since of this past week. No symptoms of outbreak. Gestational diabetes on insulin - states blood sugars are at goal. Discharge Data Procedures Performed Operation Date: 10/31/19 06:30 Actual Procedures p Section in [facility] at 0613(Bilateral) - Florinda Yang DO Hospital Course (1) Supervision of elderly multigravida, antepartum: Presented in labor, then developed nonreassuring FHT, underwent section. Please see operative report for details. Unremarkable postop course. Discharged to home. Followup with office 6w. Coding Level of Care Code None Diagnoses Supervision of elderly multigravida, antepartum O09.529
== END 2019-11-02 17:45 | disposition home or self-care (01) | DRG 788 ==
LOC: OPB 01:32 → 4S1 01:33 → 4S2 11:50